=== PATIENT | female | born 1975 | race Caucasian/White ===

== ENCOUNTER 2017-06-21 17:22 | Observation (INO) ==
[2017-06-21] MEDS ORDERED: *HR* Morphine 2 MG/ML SYRINGE IVP ONE (17:43)
[2017-06-21] MEDS ORDERED: Ondansetron 4 MG/2 ML VIAL IVP ONE (17:43)
--- NOTE | 2017-06-21 17:53 | Emergency Department Note ---
Disposition Clinical Impression: Kidney stone UTI (urinary tract infection) Qualifiers: Urinary tract infection type: site unspecified Hematuria presence: without hematuria Qualified Code(s): N39.0 - Urinary tract infection, site not specified Hydronephrosis Qualifiers: Hydronephrosis type: unspecified Qualified Code(s): N13.30 - Unspecified hydronephrosis Disposition: Admitted As Inpatient Condition: Good Time of Disposition: 19:08 General Adult HPI - General Chief complaint: ED Abdominal Pain Stated complaint: kidney stone Time Seen by Provider: 06/21/17 17:26 Source: patient, EMS Limitations: no limitations Nursing Notes Reviewed: Yes Vital Signs Reviewed: Yes - History of Present Illness HPI Narrative: 42-year-old female presenting to the emergency department with chief complaint of right flank pain. She states 2 days ago she was diagnosed with a large kidney stone and urinary tract infection. She was placed on Bactrim and discharged home. Patient denies fevers, shortness of breath, chest pain. Patient states she is had troubles with kidney stones in the past and has a stent placement in her right ureter approximately 1 month ago [facility]. Patient states she has been nauseous but has had no vomiting. She has not noticed any hematuria. Patient states she has had to double her pain medication over the past 24 hours due to the increase in severe right flank pain. Pain does not radiate outside the right flank. Pain Scale: 10 - Related Data Home Medications Medication Instructions Recorded Confirmed Omeprazole 40 mg PO DAILY 12/13/16 06/21/17 Canagliflozin [Invokana] 100 mg PO DAILY 04/05/17 06/21/17 Metformin HCl [Glucophage] 1,000 mg PO BID 06/21/17 06/21/17 Previous Rx's Medication Instructions Recorded Lisinopril [Zestril] 10 mg PO DAILY #30 tablet 12/13/16 amLODIPine [Norvasc] 10 mg PO DAILY #30 tablet 12/13/16 HYDROcodone/Acet 5/325 mg [[place] 1 tab PO Q4H PRN #15 tab 06/18/17 5-325 mg] Phenazopyridine [Pyridium] 200 mg PO TID PRN #9 tablet 06/18/17 Sulfamethoxazole/Trimeth DS 1 each PO BID #20 tablet 06/18/17 [Bactrim Ds] Docusate [Colace] 100 mg PO BID #60 capsule 06/23/17 HYDROcodone/Acet 5/325 mg [[place] 1 tab PO Q4H PRN #20 tab 06/23/17 5-325 mg] Allergies Allergy/AdvReac Type Severity Reaction Status Date / Time No Known Allergies Allergy Verified 12/13/16 13:23 All systems ED: reviewed and negative except as stated. Constitutional: Denies: fever, chills, weakness Eyes: Reports: as per HPI ENT ED: Reports: as per HPI Cardiovascular: Denies: chest pain, palpitations, dyspnea on exertion Respiratory: Denies: cough, dyspnea, wheezes Gastrointestinal: Reports: nausea, vomiting Genitourinary: Denies: hematuria Musculoskeletal: Reports: as per HPI Integumentary: Reports: as per HPI Neurological: Reports: as per HPI Psychiatric: Reports: as per HPI Endocrine: Reports: as per HPI Hematological/Lymphatic: Reports: as per HPI Allergic/Immunologic: Reports: as per HPI Past Medical History - Past Medical History Attestation: Yes The following information was validated with the patient. Medical history: Reports: COPD, diabetes, GERD, hyperlipidemia, hypertension Psychiatric history: Reports: anxiety, depression [employer] history: Reports: no [employer] history - Social History Smoking Status: Never smoker Smokeless Tobacco Status: No Alcohol use: Reports: none Drug use: Reports: none Physical Exam - General Limitations: no limitations General appearance: alert, in no apparent distress - Head Head exam: atraumatic, normocephalic, normal inspection - Eye Eye exam: Present: normal appearance - Chest Chest inspection: Present: normal inspection, symmetric chest wall rise. Absent : tenderness - Respiratory Respiratory exam: Present: normal lung sounds bilaterally. Absent: respiratory distress, wheezes - Cardiovascular Cardiovascular exam: Present: regular rate, normal rhythm, normal heart sounds - Abdominal Exam Abdominal exam: Present: soft, tenderness, normal bowel sounds. Absent: distention, guarding, rebound Abdominal tenderness: Present: moderate (Right flank) - Extremities Exam Extremities exam: Present: normal inspection, full ROM - Back Exam Back exam: Present: normal inspection, CVA tenderness (R). Absent: CVA tenderness (L) - Neurological Exam Neurological exam: Present: alert, oriented X3 - Psychiatric Psychiatric exam: Present: normal affect, normal mood - Skin Skin exam: Present: warm, intact Course Course Narrative: 42-year-old female presenting to the emergency department complaining of right flank pain. She was recently diagnosed 2 days ago with a 5 x 6 mm kidney stone in her mid ureter and a urinary tract infection. Concern for worsening hydronephrosis and infection at this time. We will obtain basic lab work including CBC and BMP. We will complete a bedside ultrasound to determine hydronephrosis. He will then return to urology to determine their disposition. - Reevaluation(s) Reevaluation #1: Bedside ultrasound showed mild to moderate hydronephrosis. Patient shows no signs of acute sepsis. Spoke with the urologist bronc breaker Dr. Bradley who agrees to accept the patient to his service. We will admit the patient at this time. Time: 19:07 Vital Signs Temperature 98.3 F 06/21/17 17:24 Pulse Rate 70 06/21/17 17:24 Respiratory Rate 18 06/21/17 17:24 Blood Pressure 142/86 06/21/17 17:24 O2 Sat by Pulse Oximetry 96 06/21/17 17:24 Temperature 97.9 F 06/23/17 07:40 Pulse Rate 51 06/23/17 07:40 Respiratory Rate 16 06/23/17 07:40 Blood Pressure 115/61 06/23/17 07:40 O2 Sat by Pulse Oximetry 100 06/23/17 07:40 Oxygen Delivery Oxygen Delivery Room Air Medical Decision Making - Lab Data Result diagrams: 06/21/17 18:13 06/21/17 18:13 Lab Results 06/21/17 06/21/17 06/21/17 Range/Units 18:13 18:13 18:54 WBC 5.4 D (4.3-11.1) K/mcL RBC 4.34 (3.82-4.97) M/mcL Hgb 13.1 (11.5-15.4) g/dL Hct 39.7 (35.3-44.9) % MCV 91.5 (83.0-100.0) fL MCH 30.2 (28.0-33.3) pg MCHC 33.0 (31.6-35.5) g/dL RDW 12.8 (11.5-14.5) % Plt Count 309 (140-400) K/mcL MPV 10.0 (9.4-12.4) fL Immature Gran % 0.2 (0-4) % Seg Neutrophils % 44.6 % Lymphocytes % 37.7 % Monocytes % 9.2 % Eosinophils % 7.2 % Basophils % 1.1 % Neutrophils # 2.4 (1.6-8.9) K/mcL Lymphocytes # 2.0 (0.6-4.6) K/mcL Monocytes # 0.5 (0.0-1.3) K/mcL Eosinophils # 0.4 (0.0-0.6) K/mcL Basophils # 0.1 (0.0-0.2) K/mcL Sodium 138 (136-145) mEq/L Potassium 4.4 D (3.5-4.5) mEq/L Chloride 108 (98-109) mEq/L Carbon Dioxide 24 (19-29) mEq/L BUN 9 (7-20) mg/dL Creatinine 0.66 (0.57-1.11) mg/dL Est GFR ( Amer) > 60 (> 60) Est GFR (Non-Af Amer) > 60 (> 60) BUN/Creatinine Ratio 14 (6-26) Glucose 117 H (70-99) mg/dL Calculated Osmolality 286 (280-300) Calcium 9.3 (8.6-10.8) mg/dL Urine Color [place] A (Yellow) Urine Clarity Cloudy A (Clear) Urine pH 6.0 (5.0-8.0) pH Units Ur Specific [place] 1.022 (1.010-1.025) Urine Protein Negative (Neg-Trace) mg/dL Urine Glucose (UA) Normal (Normal) mg/dL Urine Ketones Negative (Negative) mg/dL Urine Blood Negative (Negative) Urine Nitrite Positive A (Negative) Urine Bilirubin Negative (Negative) Urine Urobilinogen Normal (Normal) mg/dL Ur Leukocyte Esterase Small H (Negative) Urine Microscopic RBC 0-3 (0-3) per hpf Urine Microscopic WBC 15-30 H (0-3) per hpf Ur Squamous Epith Cells Many H (None-Few) per lpf Urine Bacteria None Seen (None-Few) per hpf Hyaline Casts None Seen (None-Few) per lpf Ur Culture Indicated? YES A (NO) Attestation Statement - Attestation Attestation: I examined this patient and my medical decision-making was reviewed with the Resident Physician. I agree with the documented findings, disposition and treatment plan as described except to the extent set forth below. Patient to the emergency department complaining of right-sided flank and abdominal pain. Onset several days ago. She was seen at [facility] couple of days ago and diagnosed with UTI and kidney stone in her mid ureter. States she is vomiting and she can keep the antibiotic down. On examination she is in no acute distress. She is right-sided abdominal tenderness. This no rash overlying the area. Plan. Concern the patient has an impacted stone with UTI. We will give her a dose of Rocephin. Basic labs. We will discuss with urology.
[2017-06-21 18:28] LABS: Basophils # 0.1 K/mcL (0.0-0.2); Basophils % 1.1 %; Eosinophils # 0.4 K/mcL (0.0-0.6); Eosinophils % 7.2 %; Hematocrit 39.7 % (35.3-44.9); Hemoglobin 13.1 g/dL (11.5-15.4); Immature Granulocytes % 0.2 % (0-4); Lymphocytes % 37.7 %; Mean Corpuscular Hemoglobin 30.2 pg (28.0-33.3); Mean Corpuscular Volume 91.5 fL (83.0-100.0); Monocytes # 0.5 K/mcL (0.0-1.3); Monocytes % 9.2 %; Neutrophils # 2.4 K/mcL (1.6-8.9); Platelet Count 309 K/mcL (140-400); Red Blood Count 4.34 M/mcL (3.82-4.97); Red Cell Distribution Width 12.8 % (11.5-14.5); Segmented Neutrophils % 44.6 %
[2017-06-21 18:44] LABS: BUN/Creatinine Ratio 14 (6-26); Blood Urea Nitrogen 9 mg/dL (7-20); Calcium 9.3 mg/dL (8.6-10.8); Carbon Dioxide 24 mEq/L (19-29); Chloride 108 mEq/L (98-109); Glucose 117 mg/dL (70-99); Osmolality,Calculated 286 (280-300); Potassium 4.4 mEq/L (3.5-4.5); Sodium 138 mEq/L (136-145); eGFR For African Americans > 60 (> 60); eGFR For Non-African Americans > 60 (> 60)
[2017-06-21 19:03] LABS: Bilirubin,Urine Negative (Negative); Blood,Urine Negative (Negative); Clarity,Urine Cloudy (Clear); Color,Urine Orange (Yellow); Glucose,Urine (UA) Normal (Normal); Ketones,Urine Negative (Negative); Leukocyte Esterase,Urine Small (Negative); Nitrite,Urine Positive (Negative); Protein,Urine Negative (Neg-Trace); Specific Gravity,Urine 1.022 (1.010-1.025); Urobilinogen,Urine Normal (Normal)
[2017-06-21 19:05] LABS: Bacteria,Urine None Seen per hpf (None-Few); Hyaline Casts,Urine None Seen per lpf (None-Few); Squamous Epithelial Cell,Urine Many per lpf (None-Few); WBC,Urine 15-30 per hpf (0-3)
[2017-06-21 19:21] LABS: RBC,Urine 0-3 per hpf (0-3)
[2017-06-21] MEDS ORDERED: Ondansetron 4 MG/2 ML VIAL IVP PRN (20:41)
[2017-06-21] MEDS ORDERED: Acetaminophen 325 MG TABLET PO PRN (20:41)
[2017-06-21] MEDS ORDERED: Naloxone 0.4 MG/ML INJ IVP PRN (20:41)
[2017-06-21] MEDS ORDERED: *HR* OxyCODONE Immed Rel 5 MG TABLET PO PRN (20:41)
[2017-06-21] MEDS ORDERED: D5% in Water 1,000 ML IVC PRN (20:44)
[2017-06-21] MEDS ORDERED: *HR* Dextrose 50 % in Water (Syg) 50 ML SYRINGE IVP PRN (20:44)
[2017-06-21] MEDS ORDERED: Dextrose Gel 15 GM PO PRN ×2 (20:44)
--- NOTE | 2017-06-21 21:14 | Urology History & Physical ---
Date of Encounter: 06/22/17 Time of Encounter: 07:32 Assessment and Plan (1) Kidney stone Current Visit: Yes Status: Acute 42-year-old woman with a right mid ureteral stone that has led to severe pain. She has been admitted for pain control. This morning she is still in discomfort. She wishes to have her stone treated. I recommend proceeding with a right ureteroscopy, laser lithotripsy, and stent placement. She was informed of the risks of the procedure including but not limited to bleeding, infection, injury to other structures, need for further procedures, stent irritation, incomplete fragmentation, ureteral perforation, need for nephrostomy tube, need for open repair, risks unforeseen, and the risk of anesthesia. She is willing to proceed. (2) Urinary tract infection Current Visit: Yes Status: Acute I will continue her on ceftriaxone. Her white count is normal. She is showing no evidence of sepsis. Qualifiers: Urinary tract infection type: site unspecified Hematuria presence: without hematuria Qualified Code(s): N39.0 - Urinary tract infection, site not specified (3) Diabetes Current Visit: Yes Status: Acute She has a history of diabetes mellitus. I'll keep her on a sliding scale while she is nothing by mouth. Qualifiers: Diabetes mellitus type: type 2 Qualified Code(s): E11.9 - Type 2 diabetes mellitus without complications History of Present Illness Chief complaint: Right flank pain HPI: Ms. Chappell is a 42 year old female who presents with right flank pain. 2 days ago she was seen at an outside hospital. A CT scan showed evidence of a right ureteral stone. There is concern for possible bladder infection and she was given Bactrim. She returns today with worsening right flank pain. It radiates to the groin. The pain is quite severe. She says about a month ago she had a right ureteral stent placement and stone and the stone moved into the kidney. The urologist to place a stent then removed the stent, but did not treat the stone. She came to the emergency department. A repeat CT scan was obtained which showed a stone within the mid right ureter leading to hydronephrosis. She was admitted for further pain control. Past Med Surg Social Fam HX - Past Medical History Medical history: COPD, diabetes, GERD, hyperlipidemia, hypertension Psychiatric history: anxiety, depression - Social History Smoking Status: Never smoker Smokeless Tobacco Status: No Alcohol use: none Drug use: none - Family History Mother Living Status: Still Living Hx Family Cancer: Yes (breast) Father Living Status: Hx Family Cancer: Yes (lung) Medications and Allergies Lisinopril [Zestril] 10 mg PO DAILY #30 tablet 12/13/16 [Rx] Omeprazole 40 mg PO DAILY 12/13/16 [History] amLODIPine [Norvasc] 10 mg PO DAILY #30 tablet 12/13/16 [Rx] Canagliflozin [Invokana] 100 mg PO DAILY 04/05/17 [History] HYDROcodone/Acet 5/325 mg [[place] 5-325 mg] 1 tab PO Q4H PRN #15 tab 06/18/17 [Rx ] Phenazopyridine [Pyridium] 200 mg PO TID PRN #9 tablet 06/18/17 [Rx] Sulfamethoxazole/Trimeth DS [Bactrim DS] 1 each PO BID #20 tablet 06/18/17 [Rx] Metformin HCl [Glucophage] 1,000 mg PO BID 06/21/17 [History] 3 Allergy/AdvReac Type Severity Reaction Status Date / Time No Known Allergies Allergy Verified 12/13/16 13:23 Review of Systems - Constitutional no chills, no fever(s) - EENT Nose, mouth and throat: no dizziness - Cardiovascular no chest pain - Respiratory no dyspnea - Gastrointestinal nausea - Genitourinary Genitourinary: flank pain, no hematuria - Musculoskeletal no back pain - Integumentary no erythema, no rash - Neurological no weakness - Psychiatric no suicidal ideation - Hematologic/Lymphatic no easy bleeding - Allergic/Immunologic no wheezing Exam Initial Vital Signs Temp Pulse Resp BP Pulse Ox 98.3 F 70 18 142/86 96 06/21/17 17:24 06/21/17 17:24 06/21/17 17:24 06/21/17 17:24 06/21/17 17:24 - General physical appearance Present: well developed, well nourished, no distress - Eyes Absent: icteric - ENT Present: normal nares - Neck Present: trachea midline - Respiratory Present: normal respiratory effort - Cardiovascular Cardiovascular exam IM: RRR - Abdomen Abdomen: Present: soft Urology Results - Labs 06/21/17 18:13 06/21/17 18:13 Abnormal lab results Glucose 117 mg/dL (70-99) H 06/21/17 18:13 Urine Color [place] (Yellow) A 06/21/17 18:54 Urine Clarity Cloudy (Clear) A 06/21/17 18:54 Urine Nitrite Positive (Negative) A 06/21/17 18:54 Ur Leukocyte Esterase Small (Negative) H 06/21/17 18:54 Urine Microscopic WBC 15-30 per hpf (0-3) H 06/21/17 18:54 Ur Squamous Epith Cells Many per lpf (None-Few) H 06/21/17 18:54 Ur Culture Indicated? YES (NO) A 06/21/17 18:54 All other labs normal. - Imaging CT scan - abdomen: report reviewed, image reviewed CT scan - pelvis: report reviewed, image reviewed
[2017-06-21] MEDS: 0.9 % Sodium Chloride 1,000 ML IVC SCH (22:30)
[2017-06-21] MEDS: Insulin LISPRO 300 UNITS/3 ML VIAL SQ SCH (23:43)
[2017-06-22] MEDS: *HR* HYDROmorphone (PF) 1 MG/ML SYRINGE IVP PRN ×6 (03:06→18:46)
[2017-06-22] MEDS: Insulin LISPRO 300 UNITS/3 ML VIAL SQ SCH ×3 (05:50→20:31)
[2017-06-22] MEDS: 0.9 % Sodium Chloride 1,000 ML IVC SCH ×2 (07:34→18:47)
[2017-06-22] MEDS ORDERED: amLODIPine 5 MG TABLET PO SCH (09:00)
--- NOTE | 2017-06-22 09:27 | Anesthesia Evaluation PreOp ---
Date of Encounter: 06/22/17 Time of Encounter: 09:25 - Past History Planned Operation: right USE Cardiac History: HTN, Hyperlipidemia Pulmonary History: COPD [employer] HELPER History: Denies Any Significant HX Other Medical History: Renal (stones), GERD Anesthesia History: No Prior Anesthetic Complications, Past Anesthesia ( ureteral stent) Alcohol Use: none Drug use: none Medications and Allergies Lisinopril [Zestril] 10 mg PO DAILY #30 tablet 12/13/16 [Rx] Omeprazole 40 mg PO DAILY 12/13/16 [History] amLODIPine [Norvasc] 10 mg PO DAILY #30 tablet 12/13/16 [Rx] Canagliflozin [Invokana] 100 mg PO DAILY 04/05/17 [History] HYDROcodone/Acet 5/325 mg [[place] 5-325 mg] 1 tab PO Q4H PRN #15 tab 06/18/17 [Rx ] Phenazopyridine [Pyridium] 200 mg PO TID PRN #9 tablet 06/18/17 [Rx] Sulfamethoxazole/Trimeth DS [Bactrim DS] 1 each PO BID #20 tablet 06/18/17 [Rx] Metformin HCl [Glucophage] 1,000 mg PO BID 06/21/17 [History] 3 Allergy/AdvReac Type Severity Reaction Status Date / Time No Known Allergies Allergy Verified 12/13/16 13:23 - Meds/Allergy Pre-op Review Medications Reviewed: Yes Allergies Reviewed: Yes Beta Blockers on Current Med List: No Anesthesia Results - Labs 06/21/17 18:13 06/21/17 18:13 - Imaging EKG: report reviewed (SINUS RHYTHM LOW QRS VOLTAGE IN PRECORDIAL LEADS Poor R wave progression) Anesthesia Exam Selected Entries 06/22/17 07:49 Temperature 97.7 F Pulse Rate 59 Respiratory Rate 16 Blood Pressure 115/77 O2 Sat by Pulse Oximetry 95 Weight: 112kg - [employer] OPERATOR HELPER LOC: Oriented [employer]PERATOR HELPER Motor: Normal RUE, Normal LUE, Normal RLE, Normal LLE, Normal Face [employer]PER Sensory: Normal: RUE, LUE, RLE, LLE, Face - Cardiac Rhythm: Regular Murmur: None - Pulmonary Breath Sounds: bilateral Clear Respiratory Effort: Symmetrical Anesthesia Assess/Plan ASA Score: 3 Modified [place] Scale for Level of Consciousness: Cooperative, oriented, and tranquil Anesthetic Plan: General Monitoring Plan: Standard Monitors Recovery Plan: PACU
[2017-06-22] MEDS ORDERED: FLUARIX QUAD 2017-18 36MOS UP/PF 0.5 ML SYRINGE IM ONE (12:00)
[2017-06-22] MEDS ORDERED: *HR* FentaNYL (PF) 100 MCG/2 ML VIAL ONE (16:13)
[2017-06-22] MEDS ORDERED: *HR* Propofol 200 MG/20 ML VIAL IVP ONE (16:14)
[2017-06-22] MEDS ORDERED: *HR* Midazolam HCl 2 MG/2 ML VIAL ONE (16:14)
[2017-06-22] MEDS ORDERED: *HR* Succinylcholine 200 MG/10 ML VIAL IVP ONE (16:16)
[2017-06-22] MEDS ORDERED: Lidocaine -MPF 2% 2 ML VIAL ONE (16:16)
[2017-06-22] MEDS ORDERED: *HR* Rocuronium Bromide 50 MG/5 ML VIAL ONE (16:16)
[2017-06-22] MEDS ORDERED: EPHEDrine 50 MG/ML VIAL ONE (16:40)
[2017-06-22] MEDS ORDERED: Dexamethasone 4 MG/ML VIAL ONE (16:43)
[2017-06-22] MEDS ORDERED: Ondansetron 4 MG/2 ML VIAL ONE (16:43)
[2017-06-22] MEDS ORDERED: *HR* Promethazine 25 MG/ML VIAL IVP PRN (17:00)
--- NOTE | 2017-06-22 17:14 | Operative Note ---
Date of procedure: 06/22/17 Pre-op diagnosis: Right ureteral stone Post-op diagnosis: same Procedure: Right ureteroscopy, laser lithotripsy, basket stone extraction, and stent placement. Implants: 6 [place] by 24 cm double-J stent Complications: None Anesthesia: SAUMYA Surgeon: Dajuan Bradley Estimated blood loss (cc): 1 Specimen: Right ureteral stone Condition: stable Disposition: PACU Procedure in Detail: Indications: Wanda is a 42-year-old female who presents with right flank pain. A CT scan showed a proximal right ureteral stone. She was having pain control issues and wished to have the stone removed. She elected to undergo a right ureteroscopy, laser lithotripsy, and stent placement. She was aware of the risks of the procedure including but not limited to bleeding, infection, injury to other structures, need for further procedures, need for stent, stent irritation, incomplete treatment, and the risk of anesthesia. She is willing to proceed. Procedure: After informed consent was obtained the patient was brought back to the operating room and placed in supine position. A time out was performed. General anesthesia was administered and an LMA was placed. She was then placed in the lithotomy position. She was prepped and draped in the usual sterile fashion. Cystoscopy was performed. The anterior urethra was normal. There was no evidence of bladder tumors. The ureteral orifices were in the normal orthotopic position. There was no duplication of the ureteral orifices. The zip wire was placed in the right ureteral orifice, and it was brought into the proximal ureter under fluoroscopic guidance. I passed the 8 [place] portion of the 8/10 [place]uvian ureteral dilator, but the wire did not move past the stone. I advanced a 10 [place] portion up to the level of the stone. I instilled saline up the ureter as contrast was not immediately available. The stone moved into the kidney. I then passed the wire through the 10 [place]uv[place] portion and the wire was brought into the kidney under fluoroscopic guidance. I then advanced the semirigid ureteroscope into the ureter. The scope was moved into the renal pelvis. The stone was seen in the renal pelvis. The stone was grasped with the basket. Stone was moved into the proximal ureter. It did not move beyond the proximal ureter. I inserted a 200 micron laser fiber while the stone was grasped with a basket. I broke the stone into 2 pieces. I was able to extract the stone at that point once it was in 2 pieces. A 6 [place] by 26cm JJ stent was then placed with good curl seen in the kidney and the bladder. The dangle string was left intact and tucked into the vagina. The bladder was drained. The patient was then awakened from general anesthesia and brought to recovery room in good condition. All sponge, needle, and instrument counts were correct
--- NOTE | 2017-06-22 18:01 | Anesthesia Evaluation Post Op ---
Date of Encounter: 06/22/17 Time of Encounter: 18:00 - Vital Signs Vital Signs: Selected Entries 06/22/17 17:52 Temperature 97.0 F L Respiratory Rate 16 Blood Pressure 123/73 O2 Sat by Pulse Oximetry 98 Oxygen Flow Rate (LPM) 2 - Lungs Lungs: Clear Ascult./Percussion - Airway Airway: Non-obstructed - Cardiovascular Regular Rate - Mental Status Mental Status: Alert & Oriented, Answers Appropriately - Pain Pain Scale: 0 Pain Scale used: Numeric (1 - 10) - Nausea Vomiting Nausea Vomiting: Not Present - Hydration Hydration: Ice chips, Has not voided - Discharge PostOp Status: Transfer Patient to floor
[2017-06-22] MEDS ORDERED: Naloxone 0.4 MG/ML INJ IVP PRN (18:04)
[2017-06-22] MEDS ORDERED: Ondansetron 4 MG/2 ML VIAL IVP PRN (18:04)
[2017-06-22] MEDS ORDERED: Dextrose Gel 15 GM PO PRN ×2 (18:04)
[2017-06-22] MEDS ORDERED: *HR* Dextrose 50 % in Water (Syg) 50 ML SYRINGE IVP PRN (18:04)
[2017-06-22] MEDS ORDERED: Acetaminophen 325 MG TABLET PO PRN (18:04)
[2017-06-22] MEDS ORDERED: D5% in Water 1,000 ML IVC PRN (18:04)
[2017-06-22] MEDS: *HR* OxyCODONE Immed Rel 5 MG TABLET PO PRN (20:55)
[2017-06-23] MEDS: *HR* HYDROmorphone (PF) 1 MG/ML SYRINGE IVP PRN ×2 (00:19→07:57)
[2017-06-23] MEDS: 0.9 % Sodium Chloride 1,000 ML IVC SCH (03:07)
[2017-06-23] MEDS: *HR* OxyCODONE Immed Rel 5 MG TABLET PO PRN (03:39)
--- NOTE | 2017-06-23 06:40 | Discharge Summary ---
Date of Encounter: 06/23/17 Time of Encounter: 06:37 - Discharge Diagnosis (1) Kidney stone Priority: Primary Status: Acute (2) Urinary tract infection Priority: Secondary Status: Acute Qualifiers: Urinary tract infection type: site unspecified Hematuria presence: without hematuria Qualified Code(s): N39.0 - Urinary tract infection, site not specified (3) Diabetes Priority: Secondary Status: Acute Qualifiers: Diabetes mellitus type: type 2 Qualified Code(s): E11.9 - Type 2 diabetes mellitus without complications - Discharge Medications Prescriptions: Docusate [Colace] 100 mg PO BID #60 capsule HYDROcodone/Acet 5/325 mg [[place] 5-325 mg] 1 tab PO Q4H PRN #20 tab PRN Reason: Pain Home Medications: Lisinopril [Zestril] 10 mg PO DAILY #30 tablet 12/13/16 [Rx] Omeprazole 40 mg PO DAILY 12/13/16 [History] amLODIPine [Norvasc] 10 mg PO DAILY #30 tablet 12/13/16 [Rx] Canagliflozin [Invokana] 100 mg PO DAILY 04/05/17 [History] HYDROcodone/Acet 5/325 mg [[place] 5-325 mg] 1 tab PO Q4H PRN #15 tab 06/18/17 [Rx ] Phenazopyridine [Pyridium] 200 mg PO TID PRN #9 tablet 06/18/17 [Rx] Sulfamethoxazole/Trimeth DS [Bactrim Ds] 1 each PO BID #20 tablet 06/18/17 [Rx] Metformin HCl [Glucophage] 1,000 mg PO BID 06/21/17 [History] Docusate [Colace] 100 mg PO BID #60 capsule 06/23/17 [Rx] HYDROcodone/Acet 5/325 mg [[place] 5-325 mg] 1 tab PO Q4H PRN #20 tab 06/23/17 [Rx ] Allergies/Adverse Reactions: 3 Allergy/AdvReac Type Severity Reaction Status Date / Time No Known Allergies Allergy Verified 12/13/16 13:23 Labs on day of discharge: Labs from last 24 hours 06/22/17 21:08 POC Glucose 263 H - Impressions ITS Impressions Fluoroscopy 06/22/17 16:22 IMPRESSION: Intraprocedural fluoroscopic spot images as above. See separate procedure report for more information. D/ / Erik Eli MD / Erik Eli MD Interpreting Provider: Erik Eli MD X-Ray 06/22/17 16:22 IMPRESSION: Intraprocedural fluoroscopic spot images as above. See separate procedure report for more information. D/ / Erik Eli MD / Erik Eli MD Interpreting Provider: Erik Eli MD Date of admission: 06/21/17 19:48 Primary care physician: Nicolasa Jarrell CNP Consults: 06/22/17 09:14 Consult to Secretary Of State [CONS] Routine Reason for SW Consult: transporation issues Discharging clinician: Dajuan Bradley Anticipated date of discharge: 06/23/17 - Patient Status Disposition: Home, Self-Care Condition: Good Functional capacity at discharge: independent ambulation Overall status at discharge: patient is progressing back to baseline - Discharge Instructions Follow Up With: Dajuan Bradley MD [Partnered Physician] - (06/27/2017 for string stent removal.) Additional Instructions: 1. The patient can follow up next week for string stent removal. 2. She should expect to feel flank pain with voiding. 3. The patient should call for any fevers, chills, nausea, emesis, or uncontrolled pain. 4. Please provide a work excuse if necessary for up to 1 week off. - Diet and Activity Activity: increase activity as tolerated Diet: advance to your usual diet - Hospital Course Hospital course: Ms. Chappell is a 42 year old female who presented with a right proximal ureteral stone. She was admitted on June 21, 2017. On June 22, 2017 she underwent a right ureteroscopy, laser lithotripsy, and stent placement. She did well after surgery. She was discharged home on postoperative day #1. - Time Spent with Patient Total time spent providing and/or coordinating discharge services: Less than 30 minutes Exam Initial Vital Signs Temp Pulse Resp BP Pulse Ox 98.3 F 70 18 142/86 96 06/21/17 17:24 06/21/17 17:24 06/21/17 17:24 06/21/17 17:24 06/21/17 17:24 - General physical appearance Present: well developed, well nourished, no distress - Eyes Absent: icteric - ENT Present: normal nares - Respiratory Present: normal respiratory effort - Cardiovascular Cardiovascular exam IM: RRR - Abdomen Abdomen: Present: soft - VTE Documentation of Mechanical Device: Venous foot pump, device
[2017-06-23] MEDS ORDERED: Insulin LISPRO 300 UNITS/3 ML VIAL SQ SCH (07:30)
[2017-06-23 07:47] VITALS: BP 115/61
[2017-06-23] MEDS ORDERED: FLUARIX QUAD 2017-18 36MOS UP/PF 0.5 ML SYRINGE IM ONE (08:26)
[2017-06-23] MEDS ORDERED: amLODIPine 5 MG TABLET PO SCH (09:00)
== END 2017-06-23 10:20 | disposition home or self-care (01) ==
LOC: EMEROO 17:22 → 3ANU 17:22
PROVIDERS: ADMIT Urology; ATTEND Urology